=== PATIENT | female | born 1985 | race Caucasian/White ===

== ENCOUNTER 2020-11-12 22:47 | Emergency (ER) | payer OTHER ==
[~2020-11-12 22:47] MED LIST: ALDACTONE25 MG PO; CARAFATE1 GM PO; LEVOFLOXACIN500 MG PO
[2020-11-12 23:16] LABS: HEMOGLOBIN 8.5 gm/dl (12.3-15.3); RED BLOOD COUNT 2.46 M/UL (4.00-5.10); WHITE BLOOD COUNT 3.2 K/UL (4.5-11.0)
[2020-11-12 23:34] LABS: BUN/CREATININE RATIO 20 (0-10)
== END 2020-11-13 01:48 | disposition home or self-care (01) ==
LOC: ER1 22:47
PROVIDERS: Physician Assistant
DX: R18.8 Other ascites (principal); K74.60 Unspecified cirrhosis of liver; K76.6 Portal hypertension; K80.80 Other cholelithiasis without obstruction; F17.200 Nicotine dependence, unspecified, uncomplicated
CPT/HCPCS: 80053; 81001; 82150; 83690; 85025; 85610; 93005; 96374; 96375; 99285; Q9967

== ENCOUNTER 2020-11-25 19:16 | Inpatient (IN) | payer OTHER ==
[~2020-11-25] VITALS: Ht 162.6 cm; Wt 62.6 kg
[2020-11-25 22:07] LABS: HEMOGLOBIN 7.5 gm/dl (12.3-15.3); RED BLOOD COUNT 2.19 M/UL (4.00-5.10); WHITE BLOOD COUNT 10.6 K/UL (4.5-11.0)
[2020-11-25 22:27] LABS: BUN/CREATININE RATIO 19 (0-10)
[2020-11-26 01:29] LABS: BODY FLUID SOURCE PERITONEAL; RBC (AUTOMATED) 3000 (0-100000); WBC (AUTOMATED) 76 (0-500)
[2020-11-26 01:30] LABS: MONONUCLEAR CELLS 63 (75-100); POLYMORPHONUCLEAR % 37 (0-25)
[2020-11-27 06:20] LABS: WHITE BLOOD COUNT 8.1 K/UL (4.5-11.0)
[2020-11-27 06:39] LABS: HEMOGLOBIN 6.6 gm/dl (12.3-15.3); RED BLOOD COUNT 1.91 M/UL (4.00-5.10)
[2020-11-27 06:51] LABS: BUN/CREATININE RATIO 9 (0-10)
[2020-11-28] MEDS ORDERED: SEROQUEL200 MG PO (03:58)
[2020-11-28 08:42] LABS: HEMOGLOBIN 8.2 gm/dl (12.3-15.3)
[2020-11-28 08:43] LABS: RED BLOOD COUNT 2.46 M/UL (4.00-5.10); WHITE BLOOD COUNT 14.6 K/UL (4.5-11.0)
[2020-11-28] MEDS ORDERED: LASIX40 MG PO (10:10)
[2020-11-28 10:53] LABS: BUN/CREATININE RATIO 8 (0-10)
[2020-11-28] MEDS ORDERED: LACTULOSE10 GM/152 PO (12:40)
[2020-11-28] MEDS ORDERED: VISTARIL 25 MG25 MG PO (12:40)
[2020-11-28] MEDS ORDERED: XIFAXAN 550 MG550 MG PO (12:41)
[2020-11-28] MEDS ORDERED: K-DUR TAB 20 M20 MEQ PO (12:41)
[2020-11-28] MEDS ORDERED: TYLENOL 500 MG500 MG PO (12:44)
[2020-11-29 06:43] LABS: HEMOGLOBIN 7.7 gm/dl (12.3-15.3); RED BLOOD COUNT 2.26 M/UL (4.00-5.10); WHITE BLOOD COUNT 12.6 K/UL (4.5-11.0)
[2020-11-29 09:15] LABS: BUN/CREATININE RATIO 11 (0-10)
[2020-11-30 07:09] LABS: HEMOGLOBIN 7.8 gm/dl (12.3-15.3); RED BLOOD COUNT 2.42 M/UL (4.00-5.10)
[2020-11-30 07:16] LABS: WHITE BLOOD COUNT 8.7 K/UL (4.5-11.0)
[2020-11-30 07:37] LABS: BUN/CREATININE RATIO 11 (0-10)
[2020-12-01 03:38] LABS: HEMOGLOBIN 7.2 gm/dl (12.3-15.3); WHITE BLOOD COUNT 6.6 K/UL (4.5-11.0)
[2020-12-01 03:45] LABS: RED BLOOD COUNT 2.17 M/UL (4.00-5.10)
[2020-12-01 03:56] LABS: BUN/CREATININE RATIO 14 (0-10)
[2020-12-02 03:54] LABS: HEMOGLOBIN 7.2 gm/dl (12.3-15.3); RED BLOOD COUNT 2.14 M/UL (4.00-5.10); WHITE BLOOD COUNT 6.3 K/UL (4.5-11.0)
[2020-12-02 04:42] LABS: BUN/CREATININE RATIO 13 (0-10)
[2020-12-03 03:26] LABS: BUN/CREATININE RATIO 9 (0-10)
[2020-12-04 06:56] LABS: RED BLOOD COUNT 2.43 M/UL (4.00-5.10)
[2020-12-04 07:16] LABS: BUN/CREATININE RATIO 9 (0-10)
[2020-12-05 06:19] LABS: HEMOGLOBIN 7.6 gm/dl (12.3-15.3); RED BLOOD COUNT 2.25 M/UL (4.00-5.10)
[2020-12-05 06:21] LABS: WHITE BLOOD COUNT 5.5 K/UL (4.5-11.0)
[2020-12-05 06:57] LABS: BUN/CREATININE RATIO 10 (0-10)
[2020-12-05] MEDS ORDERED: ALDACTONE 25MG25 MG PO (16:10)
[2020-12-05] MEDS ORDERED: FUROSEMIDE40 MG PO (16:10)
[2020-12-05] MEDS ORDERED: PROPRANOLOL HCL60 M1 PO (16:10)
[2020-12-05] MEDS ORDERED: CARAFATE1 GM PO (16:10)
[2020-12-05] MEDS ORDERED: XIFAXAN 550 MG550 MG PO (16:10)
[2020-12-05] MEDS ORDERED: CHRONULAC20 GM/30 M PO (16:10)
== END 2020-12-05 18:03 | disposition home health service (06) | DRG 432 ==
LOC: ER1 19:16 → ZEROF 11-26 03:39 → MED SURG 4 11-26 03:39 → ZEROF 11-26 03:39 → MED SURG 4 11-26 21:28
PROVIDERS: Emergency Medicine; Hospitalist; Internal Medicine; Physician Assistant Medical; ADMIT Internal Medicine
PROC: 30233N1 Transfusion of Nonautologous Red Blood Cells into Peripheral Vein, Percutaneous Approach (ICD-10-PCS; 2020-11-27)
PROC: 0W9G3ZZ Drainage of Peritoneal Cavity, Percutaneous Approach (ICD-10-PCS; principal; 2020-11-28)
DX: K70.31 Alcoholic cirrhosis of liver with ascites (principal); J96.01 Acute respiratory failure with hypoxia; J18.9 Pneumonia, unspecified organism; R78.81 Bacteremia; E87.2 Acidosis; J90 Pleural effusion, not elsewhere classified; J98.11 Atelectasis; D61.818 Other pancytopenia; B95.8 Unspecified staphylococcus as the cause of diseases classified elsewhere; I10 Essential (primary) hypertension; F31.9 Bipolar disorder, unspecified; Z79.899 Other long term (current) drug therapy; Z20.822 Contact with and (suspected) exposure to COVID-19; Z93.3 Colostomy status; F17.210 Nicotine dependence, cigarettes, uncomplicated; R16.1 Splenomegaly, not elsewhere classified; D63.8 Anemia in other chronic diseases classified elsewhere; J20.9 Acute bronchitis, unspecified; F41.9 Anxiety disorder, unspecified; E87.6 Hypokalemia; G89.4 Chronic pain syndrome
CPT/HCPCS: 36415; 36430; 71045; 71260; 76705; 80048; 80053; 82140; 83605; 83690; 83735; 84132; 84484; 85025; 85027; 85610; 86140; 86850; 86900; 86901; 86920; 87040; 87070; 87077; 87186; 87205; 89051; 90471; 93005; 93970; 94640; 94664; 94760; 96365; 96375; 96376; 99285; G0378; J0456; J0696; J1940; J2060; J2270; J2405; J2930; J7030; P9016; Q9967; U0002

== ENCOUNTER 2020-12-22 13:05 | Emergency (ER) | payer OTHER ==
[~2020-12-22 13:05] MED LIST changes: +ALDACTONE 25MG25 MG PO; +CHRONULAC20 GM/30 M PO; +FUROSEMIDE40 MG PO; +K-DUR TAB 20 M20 MEQ PO; +LACTULOSE10 GM/152 PO; +LASIX40 MG PO; +PROPRANOLOL HCL60 M1 PO; +SEROQUEL200 MG PO; +TYLENOL 500 MG500 MG PO; +VISTARIL 25 MG25 MG PO; +XIFAXAN 550 MG550 MG PO
[2020-12-22 14:09] LABS: HEMOGLOBIN 7.2 gm/dl (12.3-15.3); RED BLOOD COUNT 2.13 M/UL (4.00-5.10); WHITE BLOOD COUNT 3.2 K/UL (4.5-11.0)
[2020-12-22 14:37] LABS: BUN/CREATININE RATIO 14 (0-10)
== END 2020-12-22 20:25 | disposition home or self-care (01) ==
LOC: ER1 13:05
PROVIDERS: Student in an Organized Health Care Education/Training Program
DX: T40.601A Poisoning by unspecified narcotics, accidental (unintentional), initial encounter (principal); Y92.009 Unspecified place in unspecified non-institutional (private) residence as the place of occurrence of the external cause
CPT/HCPCS: 36415; 36600; 80053; 80307; 81001; 82140; 82550; 82553; 82803; 83690; 83874; 84484; 84703; 85025; 85610; 85730; 93005; 99283; G0480

== ENCOUNTER 2020-12-27 15:51 | Emergency (ER) | payer OTHER ==
[2020-12-27 17:51] LABS: RED BLOOD COUNT 3.03 M/UL (4.00-5.10); WHITE BLOOD COUNT 4.9 K/UL (4.5-11.0)
[2020-12-27 18:11] LABS: BUN/CREATININE RATIO 12 (0-10)
== END 2020-12-27 20:45 | disposition home or self-care (01) ==
LOC: ER1 15:51
PROVIDERS: Preventive Medicine Occupational Medicine
DX: K74.60 Unspecified cirrhosis of liver (principal); R18.8 Other ascites; F17.210 Nicotine dependence, cigarettes, uncomplicated; I10 Essential (primary) hypertension
CPT/HCPCS: 36415; 80053; 82140; 82550; 82553; 83874; 84484; 85025; 93005; 96365; 96375; 99284; J0696; P9047